=== PATIENT | female | born 1990 | race African-American/Black ===

== ENCOUNTER 2017-09-14 09:09 | Emergency (ER) | payer BC ==
--- NOTE | 2017-09-14 09:28 | ER Document Report ---
HPI - HPI Patient complains to provider of: cough, congestion for a month Onset: Other - 1 month Onset/Duration: Persistent Pain Level: 3 Context: 27 yo non smoker with cough, congestion for 1 month, over the counter meds not relieving the symptoms. No hx asthma. No chest pain or sob. No n/v/d, abd pain, dysuria or rash. Associated Symptoms: None Exacerbated by: Denies Relieved by: Denies - ROS ROS below otherwise negative: Yes Systems Reviewed and Negative: Yes All other systems reviewed and negative - CONSTITUTIONAL Constitutional: DENIES: Fever, Chills - EENT EENT: DENIES: Sore Throat, Ear Pain, Eye problems - NEURO Neurology: REPORTS: Headache. DENIES: Weakness, Vision blurred, Dizzinesss / Vertigo - CARDIOVASCULAR Cardiovascular: DENIES: Chest pain - RESPIRATORY Respiratory: REPORTS: Coughing. DENIES: Trouble Breathing - GASTROINTESTINAL Gastrointestinal: DENIES: Abdominal Pain, Black / Bloody Stools - URINARY Urinary: DENIES: Dysuria, Urgency, Frequency - REPRODUCTIVE Reproductive: DENIES: :, Postmenopausal, Abnormal bleeding / discharge - MUSCULOSKELETAL Musculoskeletal: DENIES: Extremity pain Past Medical History - General Information source: Patient - Social History Smoking Status: Never Smoker Chew tobacco use (# tins/day): No Frequency of alcohol use: None Drug Abuse: None Lives with: Family Family History: Hypertension, Malignancy Patient has suicidal ideation: No Patient has homicidal ideation: No - Medical History Medical History: Negative Renal/ Medical History: Denies: Hx Peritoneal Dialysis Surgical Hx: Negative - Immunizations Immunizations up to date: Yes Hx Diphtheria, Pertussis, Tetanus Vaccination: Yes Vertical Provider Document - CONSTITUTIONAL Agree With Documented VS: Yes Exam Limitations: No Limitations General Appearance: No Apparent Distress - INFECTION CONTROL TRAVEL OUTSIDE OF THE [place] IN LAST 30 DAYS: No - HEENT HEENT: Pharyngeal Erythema. negative: Conjuctival Injection, Tympanic Membrane Red - NECK Neck: Supple. negative: Lymphadenopathy-Left, Lymphadenopathy-Right - RESPIRATORY Respiratory: Breath Sounds Normal, No Respiratory Distress O2 Sat by Pulse Oximetry: 98 - CARDIOVASCULAR Cardiovascular: Regular Rate, Regular Rhythm - GI/ABDOMEN Gastrointestinal: Abdomen Soft, Abdomen Non-Tender - MUSCULOSKELETAL/EXTREMETIES Musculoskeletal/Extremeties: KRISTY HENAO - NEURO Level of Consciousness: Awake, Alert - DERM Integumentary: Warm, Dry, No Rash Course - Re-evaluation Re-evalutation: 09/14/17 11:10 Chest x-ray is negative per radiologist. - Vital Signs Vital signs: Temp Pulse Resp BP Pulse Ox 99.6 F 99 14 151/79 H 98 09/14/17 09:14 09/14/17 09:14 09/14/17 09:14 09/14/17 09:14 09/14/17 09:14 Discharge - Discharge Clinical Impression: Persistent cough Condition: Good Disposition: HOME, SELF-CARE Instructions: Tessalon Perles ([facility]), Upper Respiratory Illness ([facility]) Additional Instructions: Plenty of fluids See family practice doctor if not resolved in a week Tessalon Destiney 3 times a day for the cough Return to the emergency room if worse Prescriptions: Benzonatate [Tessalon Perles 100 mg Capsule] 100 mg PO TIDP PRN #30 capsule PRN Reason: Forms: Return to Work
--- NOTE | 2017-09-14 10:51 | RADIOLOGY REPORT (SQ) ---
EXAM DESCRIPTION: CHEST PA/LAT COMPLETED DATE/TIME: 09/14/2017 10:42 am REASON FOR STUDY: cough x 1 month COMPARISON: None. EXAM PARAMETERS: NUMBER OF VIEWS: two views TECHNIQUE: Digital Frontal and Lateral radiographic views of the chest acquired. RADIATION DOSE: NA LIMITATIONS: none FINDINGS: LUNGS AND PLEURA: No opacities, masses or pneumothorax. No pleural effusion. MEDIASTINUM AND HILAR STRUCTURES: No masses or contour abnormalities. HEART AND VASCULAR STRUCTURES: Heart normal size. No evidence for failure. BONES: No acute findings. HARDWARE: None in the chest. OTHER: No other significant finding. IMPRESSION: NO SIGNIFICANT RADIOGRAPHIC FINDING IN THE CHEST. TECHNICAL DOCUMENTATION: JOB ID: [id number] [email or web address]- All Rights Reserved
[2017-09-14] MEDS ORDERED: BENZONATATE 100 MG CAPSULE PO ONE (11:04)
[2017-09-14 11:28] VITALS: BP 104/86
== END 2017-09-14 11:24 | disposition home or self-care (01) ==
LOC: ER 09:09
DX: R05 Cough (principal); R51 Headache
CPT/HCPCS: 71020; 99283

== ENCOUNTER 2019-01-17 07:41 | Emergency (ER) | payer BC ==
[2019-01-17] MEDS ORDERED: ACETAMINOPHEN 325 MG TABLET PO ONE (10:22)
[2019-01-17] MEDS ORDERED: ONDANSETRON 4 MG TAB.RAPDIS PO ONE (10:22)
[2019-01-17 10:51] LABS: AMORPHOUS SEDIMENT,URINE TRACE /HPF; APPEARANCE,URINE CLEAR; BILIRUBIN,URINE NEGATIVE (NEGATIVE); COLOR,URINE YELLOW; GLUCOSE, URINE NEGATIVE (NEGATIVE); KETONES,URINE NEGATIVE (NEGATIVE); LEUKOCYTE ESTERASE,URINE NEGATIVE (NEGATIVE); NITRITE,URINE NEGATIVE (NEGATIVE); PROTEIN,URINE NEGATIVE (NEGATIVE); UROBILINOGEN,URINE NEGATIVE mg/dL (<2.0)
[2019-01-17] MEDS ORDERED: PROCHLORPERAZINE EDISYLATE INJ 10 MG/2 ML VIAL IV ONE (11:24)
[2019-01-17] MEDS ORDERED: DIPHENHYDRAMINE HCL 50 MG/ML VIAL IV ONE (11:25)
[2019-01-17] MEDS ORDERED: NORMAL SALINE 1000 ML 1,000 ML IV ONE (11:25)
[2019-01-17] MEDS ORDERED: KETOROLAC TROMETHAMINE INJ/PF 30 MG/1 ML SDV IV ONE (11:25)
--- NOTE | 2019-01-17 11:31 | ER Document Report ---
ED Headache - General Chief Complaint: Headache Stated Complaint: HEADACHE Time Seen by Provider: 01/17/19 10:00 Primary Care Provider: FLORENTINO AUGUST MD [Primary Care Provider] - Follow up as needed Notes: 28-year-old female patient emergency department chief complaint of headache times 1 week. Patient states she has a history of migraines. Has been taking Imitrex but not getting better. Mother has migraines as well. Patient denies any fever, neck stiffness, any other problems with eyes ears nose and throat other than some photophobia. TRAVEL OUTSIDE OF THE [place] IN LAST 30 DAYS: No - HPI Patient complains to provider of: "Migraine" Onset was: Cannot pinpoint Timing: Worse Quality of pain: Achy Context: denies: CO exposure, Head injury, Meningitis exposure Associated symptoms: Photophobia. denies: Confusion, Dizzy, Double/blurred vision, Neck pain, Speech problems, Stiff neck - Related Data Allergies/Adverse Reactions: No Known Allergies Allergy (Verified 09/14/17 09:11) Past Medical History - General Information source: Patient - Social History Smoking Status: Never Smoker Chew tobacco use (# tins/day): No Frequency of alcohol use: Rare Drug Abuse: None Lives with: Family Family History: Hypertension, Malignancy Patient has suicidal ideation: No Patient has homicidal ideation: No - Medical History Medical History: Negative Neurological Medical History: Reports: Hx Migraine Renal/ Medical History: Denies: Hx Peritoneal Dialysis - Immunizations Immunizations up to date: Yes Hx Diphtheria, Pertussis, Tetanus Vaccination: Yes Review of Systems - Review of Systems Notes: Constitutional: denies: Chills, Diaphoresis, Fever, Malaise, Weakness EENT: denies: Eye discharge, Blurred vision, Tearing, Double vision, Nose congestion, Nose discharge, Throat swelling, Mouth pain. Positive for photophobia Cardiovascular: denies: Palpitations, Heart racing, Orthopnea, Dyspnea, Chest pain Respiratory: denies: Cough, Hurts to breathe, Wheezing, Shortness of breath Gastrointestinal: denies: Abdominal pain, Diarrhea, Nausea, Vomiting, Black stools, bright red blood in stool Genitourinary: denies: Burning, Dysuria, Discharge, Frequency, Flank pain, Hematuria Musculoskeletal: denies: Joint pain, Joint swelling, Muscle pain, Muscle stiffness, back pain Hematologic/Lymphatic: denies: Anemia, Easy bleeding, Easy bruising, Blood clots Neurological/Psychological: denies: Confusion, Dementia, Depression, Loss of consciousness positive for headache Skin: No lesions, no masses, no skin breakdown, no abscesses Physical Exam - Vital signs Vitals: Temp Pulse Resp BP Pulse Ox 98.8 F 90 18 139/80 H 98 01/17/19 07:48 01/17/19 07:48 01/17/19 07:48 01/17/19 07:48 01/17/19 07:48 Interpretation: Normal - General General appearance: Appears well, Alert - HEENT Head: Normocephalic, Atraumatic Eyes: Normal Conjunctiva: Normal Cornea: Normal Pupils: PERRL Fundascopic: Normal Neck: Normal. No: Brudzinski, Meningismus - Respiratory Respiratory status: No respiratory distress Chest status: Nontender Breath sounds: Normal Chest palpation: Normal - Cardiovascular Rhythm: Regular Heart sounds: Normal auscultation Murmur: No - Abdominal Inspection: Normal Distension: No distension Bowel sounds: Normal Tenderness: Nontender Organomegaly: No organomegaly - Back Back: Normal, Nontender - Extremities General upper extremity: Normal inspection, Nontender, Normal color, Normal ROM, Normal temperature General lower extremity: Normal inspection, Nontender, Normal color, Normal ROM, Normal temperature, Normal weight bearing. No: Jean's sign - Neurological Neuro grossly intact: Yes Cognition: Normal Orientation: AAOx4 Leah Coma Scale Eye Opening: Spontaneous Leah Coma Scale Verbal: Oriented Leah Coma Scale Motor: Obeys Commands Leah Coma Scale Total: 15 Speech: Normal Motor strength normal: LUE, RUE, LLE, RLE Sensory: Normal - Psychological Associated symptoms: Normal affect, Normal mood - Skin Skin Temperature: Warm Skin Moisture: Dry Skin Color: Normal Course - Re-evaluation Re-evalutation: 01/17/19 12:04 Well-appearing female in no acute distress with likely migraine. We will treat with migraine medication at this time. 01/17/19 12:40 Since symptoms are much improved. Feeling much better. Repeat exam unremarkable. Will DC at this time 01/17/19 12:40 Laboratory 01/17/19 10:30 Urine Color YELLOW Urine Appearance CLEAR Urine pH 8.0 Ur Specific [place] 1.020 Urine Protein NEGATIVE Urine Glucose (UA) NEGATIVE Urine Ketones NEGATIVE Urine Blood NEGATIVE Urine Nitrite NEGATIVE Urine Bilirubin NEGATIVE Urine Urobilinogen NEGATIVE Ur Leukocyte Esterase NEGATIVE Urine WBC (Auto) 1 Urine RBC (Auto) 4 Squamous Epi Cells Auto 2 Amorphous Sediment Auto TRACE Urine Mucus (Auto) RARE Urine Ascorbic Acid NEGATIVE Urine HCG, Qual NEGATIVE - Vital Signs Vital signs: Temp Pulse Resp BP Pulse Ox 97.9 F 74 18 127/74 H 100 01/17/19 12:18 01/17/19 12:18 01/17/19 12:18 01/17/19 12:18 01/17/19 12:18 Discharge - Discharge Clinical Impression: Migraine headache Qualifiers: Migraine type: unspecified Status migrainosus presence: without status migrainosus Intractability: not intractable Qualified Code(s): G43.909 - Migraine, unspecified, not intractable, without status migrainosus Condition: Good Disposition: HOME, SELF-CARE Instructions: Headache ([facility]) Referrals: FLORENTINO AUGUST MD [Primary Care Provider] - Follow up as needed
[2019-01-17 12:20] VITALS: BP 127/74
== END 2019-01-17 12:52 | disposition home or self-care (01) ==
LOC: ER 07:41
DX: G43.909 Migraine, unspecified, not intractable, without status migrainosus (principal); Z79.899 Other long term (current) drug therapy
CPT/HCPCS: 99283; 96361; 96374; 96375; 81025; 81001; J1200; S0119; J1885; J0780; J7030